=== PATIENT | female | born 1965 ===

== ENCOUNTER 2018-12-22 17:44 | Emergency (ER) | payer OTHER, MEDICAID ==
[2018-12-22 18:56] LABS: HCG,QUALITATIVE URINE NEGATIVE (NEGATIVE)
[2018-12-22 18:58] LABS: SQUAMOUS EPITHIAL 2 /hpf (0-5); URINE AMORPHOUS SEDIMENT FEW /ul (<OCC); URINE BILIRUBIN NEGATIVE (NEGATIVE); URINE BLOOD NEGATIVE (NEGATIVE); URINE CLARITY Hazy (Clear); URINE COLOR Amber (YELLOW); URINE GLUCOSE (UA) NORMAL (Normal); URINE LEUKOCYTE ESTERASE 3+ Leu/uL (Negative); URINE PROTEIN NEGATIVE (NEGATIVE); URINE UROBILINOGEN NORMAL mg/dL (0.2-1.0)
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
[2018-12-22 20:09] VITALS: BP 118/77; PULSE 66; RESP 16; TEMP 98.3
[2018-12-22 20:18] VITALS: O2SAT 96
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
--- NOTE | 2018-12-23 17:38 | RAD ---
PROCEDURE: Left Hip X-ray Radiographs. HISTORY: L hip contusion COMPARISON: None. TECHNIQUE: 2 views obtained. FINDINGS: BONES: Normal. No fracture. JOINTS: Normal. SOFT TISSUES: Intrauterine device noted in left hemipelvis. OTHER FINDINGS: None. IMPRESSION: No acute fracture.
== END 2018-12-22 20:48 | disposition home or self-care (01) ==
LOC: C.ER 17:44
DX: S00.83XA Contusion of other part of head, initial encounter (principal); S30.0XXA Contusion of lower back and pelvis, initial encounter; Y08.89XA Assault by other specified means, initial encounter; Y92.009 Unspecified place in unspecified non-institutional (private) residence as the place of occurrence of the external cause; Y99.0 Civilian activity done for income or pay